=== PATIENT | female | born 1960 | race Caucasian/White ===

== ENCOUNTER 2016-11-11 | Outpatient (CLI) | payer BC | END 2016-11-11 10:00 | disposition home or self-care (01) ==

== ENCOUNTER 2016-11-11 09:35 | Outpatient (CLI) | payer BC | END 2016-11-11 09:36 | disposition home or self-care (01) | DX: Z80.3 Family history of malignant neoplasm of breast (principal) ==

== ENCOUNTER 2018-05-25 07:27 | Outpatient (CLI) | payer BC ==
--- NOTE | 2018-05-25 09:46 | Ultrasound Report ---
Reason: CHOLELITHIASIS Procedure Date: 05/25/2018 Accession Number: [id number] / [id number] Procedure: US - Abdomen Complete CPT Code: FULL RESULT: EXAM: ABDOMEN ULTRASOUND EXAM DATE: 05/25/2018 08:28 AM. CLINICAL HISTORY: CHOLELITHIASIS. COMPARISON: None. TECHNIQUE: Real-time scanning was performed with static images obtained. FINDINGS: Liver: The liver is moderately and diffusely echogenic. Normal contour. No masses. 16.3 cm. Main portal vein flow: Hepatopetal. Gallbladder: There are multiple gallstones. There is no gallbladder wall thickening or pericholecystic fluid. Biliary System: Common bile duct measures 5 mm. No intrahepatic or extrahepatic ductal dilatation. Pancreas: Visualized pancreas is unremarkable. Kidneys: Right: 11.4 cm longitudinally. No contour-deforming mass, stones, or hydronephrosis. Left: 11.4 cm longitudinally. No contour-deforming mass, stones, or hydronephrosis. Spleen: 10.6 cm. Normal in size and echotexture. Likely 1.4 cm accessory spleen. Aorta and Inferior Vena Cava: Unremarkable. IMPRESSION: Cholelithiasis without evidence of cholecystitis [facility]
== END 2018-05-25 07:28 | disposition home or self-care (01) ==
LOC: DI 07:27
PROVIDERS: ATTEND Family Medicine
DX: K80.20 Calculus of gallbladder without cholecystitis without obstruction (principal)
CPT/HCPCS: 76700

== ENCOUNTER 2018-06-10 10:12 | Outpatient (CLI) | payer BC ==
--- NOTE | 2018-06-10 16:22 | MRI Report ---
Reason: PIRIFORMIS SYNDROME, RIGHT Procedure Date: 06/10/2018 Accession Number: [id number] / [id number] Procedure: MRI - Pelvis W/O CPT Code: FULL RESULT: EXAM: MRI PELVIS WITHOUT CONTRAST EXAM DATE: 06/10/2018 11:44 AM. CLINICAL HISTORY: Piriformis syndrome, right. COMPARISON: None. TECHNIQUE: Multiplanar, multisequence T1-weighted and fluid-sensitive sequences of the pelvis without contrast. Other: None. FINDINGS: Bones: No fractures or subluxations. No marrow edema or bone lesions. Lower Lumbar Spine: Mild degenerative change at the L4-L5 and L5-S1 endplates. Sacroiliac Joints: No effusion or sacroiliitis. Right Hip: No acetabular retroversion. Femoral head-neck offset is within normal limits. No effusion. Left Hip: No acetabular retroversion. Femoral head-neck offset is within normal limits. No effusion. Symphysis Pubis: Unremarkable. Musculature: The piriformis appear symmetric and do not appear enlarged. There is no fatty atrophy. Pelvic Cavity: No pelvic mass. The visible bladder and bowel appear unremarkable. Other: The visualized sciatic nerves are unremarkable. No bursitis. The subcutaneous tissues are unremarkable. IMPRESSION: 1. Symmetric piriformis muscles. No pelvic mass. 2. Mild degenerative change in the lower lumbar spine. [facility] MUSCULOSKELETAL RADIOLOGY SECTION
== END 2018-06-10 10:13 | disposition home or self-care (01) ==
LOC: DI 10:12
PROVIDERS: ATTEND Orthopaedic Surgery
DX: G57.01 Lesion of sciatic nerve, right lower limb (principal)
CPT/HCPCS: 72195

== ENCOUNTER 2018-11-16 06:45 | Day surgery (SDC) | payer OTHER ==
[2018-11-16] MEDS ORDERED: LACTATED RINGERS 1,000 ML IV ONE ×3 (07:10→09:10)
[2018-11-16] MEDS ORDERED: fentaNYL 250 MCG/5 ML VIAL IVP ONE (08:16)
[2018-11-16] MEDS ORDERED: MIDAZOLAM 2 MG/2 ML VIAL IVP ONE (08:16)
[2018-11-16] MEDS ORDERED: ONDANSETRON 4 MG/2 ML VIAL ONE (10:21)
[2018-11-16 10:56] VITALS: BP 122/79
== END 2018-11-16 06:46 | disposition home or self-care (01) ==
LOC: SDS 06:45
PROVIDERS: ATTEND Surgery
PROC: 3E0H8GC Introduction of Other Therapeutic Substance into Lower GI, Via Natural or Artificial Opening Endoscopic (ICD-10-PCS; 2018-11-16)
PROC: 0DBN8ZX Excision of Sigmoid Colon, Via Natural or Artificial Opening Endoscopic, Diagnostic (ICD-10-PCS; principal; 2018-11-16 08:15)
DX: Z12.11 Encounter for screening for malignant neoplasm of colon (principal); D12.5 Benign neoplasm of sigmoid colon; K64.8 Other hemorrhoids; K80.20 Calculus of gallbladder without cholecystitis without obstruction; E11.9 Type 2 diabetes mellitus without complications; I10 Essential (primary) hypertension; E66.9 Obesity, unspecified; Z68.38 Body mass index [BMI] 38.0-38.9, adult
CPT/HCPCS: 45381; 45385; J3010; J7120

== ENCOUNTER 2019-01-01 07:46 | Day surgery (SDC) | payer OTHER ==
[2019-01-01] MEDS ORDERED: KETAMINE 500 MG/10 ML VIAL IVP ONE (08:00)
[2019-01-01] MEDS ORDERED: PROPOFOL 200 MG/20 ML VIAL IVP ONE (08:00)
[2019-01-01] MEDS ORDERED: MIDAZOLAM 2 MG/2 ML VIAL IVP ONE (08:00)
[2019-01-01] MEDS ORDERED: LACTATED RINGERS 1,000 ML IV ONE (08:10)
--- NOTE | 2019-01-01 08:21 | ANESTHESIA ---
Pre-Anesthesia VS, & Labs - Diagnosis colon polyps - Procedure colonoscopy Vital Signs: Temp Pulse Resp BP Pulse Ox 36.0 C L 97 20 125/80 97 01/01/19 07:55 01/01/19 07:55 01/01/19 07:55 01/01/19 07:55 01/01/19 07:55 Height 5 ft 1.25 in Weight (kg) 91.3 kg Body Mass Index 38.9 - NPO >8 hours - Is Patient ?: Not Applicable Home Medications and Allergies Home Medications: Ambulatory Orders Black Cohosh 540 mg PO DAILY 12/28/18 Cholecalciferol [Vitamin D3] 10,000 unit PO DAILY 12/28/18 Losartan/Hydrochlorothiazide [Losartan-Hctz 100-25 mg Tab] 25 mg ORAL DAILY 08/04/15 Potassium Chloride [Klor-Con M10] 20 meq ORAL DAILY 08/04/15 metFORMIN [Glucophage] 4,000 mg ORAL DAILY 08/04/15 Glimepiride 4 mg PO DAILY 11/13/18 Black Cohosh 540 mg PO DAILY 12/28/18 Cholecalciferol [Vitamin D3] 10,000 unit PO DAILY 12/28/18 Allergies/Adverse Reactions: Allergies Allergy/AdvReac Type Severity Reaction Status Date / Time morphine AdvReac chest pain Verified 12/31/18 13:52 and nausea Anes History & Medical History - Anesthetic History Anesthesia Complications: reports: Post-Operative Nausea/Vomiting Family history of Anesthesia Complications: Denies Family history of Malignant Hyperthermia: Denies - Medical History Cardiovascular: reports: Hypertension Pulmonary: reports: None Gastrointestinal: reports: Colon polyps Urinary: reports: None Musculoskeletal: reports: Chronic back pain Endocrine/Autoimmune: reports: Type 2 diabetes Skin: reports: None Smoking Status: Never smoker - Surgical History General: Other Gynecologic: Hysterectomy Exam General: Alert, Oriented x3, Cooperative, No acute distress Dental: WNL Mouth Openin Fingerbreadth Neck Mobility: Normal Mallampati classification: II Thyromental Distance: 4-6 cm Respiratory: Lungs clear, Normal breath sounds, No respiratory distress, No accessory muscle use Cardiovascular: Regular rate, Normal S1, Normal S2, No murmurs Mental/Cognitive Status: Alert/Oriented X3, Normal for patient Plan Anesthesia Type: MAC Consent for Procedure(s) Verified and Reviewed: Yes Code Status: Attempt Resuscitation ASA classification: 2-Mild systemic disease Is this case an emergency?: No
[2019-01-01 10:11] VITALS: BP 121/79
== END 2019-01-01 07:47 | disposition home or self-care (01) ==
LOC: SDS 07:46
PROVIDERS: ATTEND Surgery
PROC: 0DBN8ZZ Excision of Sigmoid Colon, Via Natural or Artificial Opening Endoscopic (ICD-10-PCS; principal; 2019-01-01 09:00)
DX: D12.5 Benign neoplasm of sigmoid colon (principal); K64.8 Other hemorrhoids; I10 Essential (primary) hypertension; E11.9 Type 2 diabetes mellitus without complications; Z79.84 Long term (current) use of oral hypoglycemic drugs; E66.9 Obesity, unspecified; Z68.38 Body mass index [BMI] 38.0-38.9, adult
CPT/HCPCS: 45385; J7120

== ENCOUNTER 2020-07-24 12:39 | Outpatient (CLI) | payer OTHER ==
--- NOTE | 2020-07-24 15:37 | XRAY Report ---
PROCEDURE: Shoulder 3 View RT INDICATIONS: RIGHT SHOULDER PAIN TECHNIQUE: views of the shoulder were acquired. COMPARISON: None. FINDINGS: Bones: No fractures or dislocations. No suspicious bony lesions. Visualized ribs appear intact. Soft tissues: There are suspicious soft tissue calcifications at the lateral supraspinatus tendon are a, bursal in appearance. IMPRESSION: Definite calcific bursitis right shoulder. Reviewed by: Derick Deshpande MD on 07/24/2020 3:35 PM PST Approved by: Derick Deshpande MD on 07/24/2020 3:35 PM PST Station ID: [id number]
== END 2020-07-24 12:40 | disposition home or self-care (01) ==
LOC: DI.WCP 12:39
PROVIDERS: ATTEND Nurse Practitioner
DX: M75.51 Bursitis of right shoulder (principal)

== ENCOUNTER 2020-08-31 08:00 | Outpatient (CLI) | payer OTHER ==
[2020-08-31 17:49] LABS: BASOPHILS # (AUTO) 0.1 10^3/uL (0.0-0.1); BASOPHILS % (AUTO) 0.8 %; EOSINOPHILS # (AUTO) 0.3 10^3/uL (0.0-0.7); EOSINOPHILS % (AUTO) 3.8 %; HGB - HEMOGLOBIN 15.4 g/dL (12.0-16.0); LYMPHOCYTES # (AUTO) 1.8 10^3/uL (1.5-3.5); MEAN CORPUSCULAR HEMOGLOBIN 30.3 pg (27.0-31.0); MEAN CORPUSCULAR HGB CONC 33.1 g/dL (32.0-36.0); MEAN CORPUSCULAR VOLUME 91.4 fL (81.0-99.0); MEAN PLATELET VOLUME 10.5 fL (7.9-10.8); MONOCYTES # (AUTO) 0.6 10^3/uL (0.0-1.0); MONOCYTES % (AUTO) 6.6 %; NEUTROPHILS # (AUTO) 5.9 10^3/uL (1.5-6.6); NEUTROPHILS % (AUTO) 67.6 %; PLT - PLATELET COUNT 388 10^3/uL (130-450); RED BLOOD COUNT 5.09 10^6/uL (4.20-5.40); WHITE BLOOD COUNT 8.8 x10^3/uL (4.8-10.8)
[2020-08-31 18:12] LABS: CALCIUM 10.6 mg/dL (8.5-10.3); CREATININE 0.6 mg/dL (0.4-1.0)
== END 2020-08-31 08:01 | disposition home or self-care (01) ==
LOC: LAB.WCP 08:00
PROVIDERS: ATTEND Internal Medicine
DX: R59.0 Localized enlarged lymph nodes (principal)
CPT/HCPCS: 36415; 80048; 80053; 80061; 81599; 82043; 82570; 83036; 83615; 83721; 84443; 85025; 86140; 88184; 88185; 88189

== ENCOUNTER 2020-09-05 09:56 | Outpatient (CLI) | payer OTHER ==
[2020-09-05 14:17] LABS: HEMOGLOBIN A1c% 7.2 % (4.27-6.07)
[2020-09-05 15:13] LABS: ALBUMIN 4.1 g/dL (3.2-5.5); BILIRUBIN,DIRECT 0.1 mg/dL (0.1-0.5); BILIRUBIN,TOTAL 0.7 mg/dL (0.2-1.0); TOTAL PROTEIN 7.8 g/dL (6.7-8.2)
== END 2020-09-05 09:57 | disposition home or self-care (01) ==
LOC: LAB.N 09:56
PROVIDERS: ATTEND Internal Medicine
DX: E11.9 Type 2 diabetes mellitus without complications (principal); E83.52 Hypercalcemia
CPT/HCPCS: 36415; 80076; 83036; 83519; 83970

== ENCOUNTER 2020-09-09 08:39 | Outpatient (CLI) | payer OTHER ==
[2020-09-09] MEDS ORDERED: IOVERSOL 320 100 ML VIAL IVP ONE ×2 (09:03→14:39)
[2020-09-09] MEDS ORDERED: IOVERSOL 320 50 ML VIAL ONE (09:03)
[2020-09-09] MEDS ORDERED: IOVERSOL 320 50 ML VIAL PO ONE (14:39)
--- NOTE | 2020-09-09 18:26 | CT Report ---
PROCEDURE: CHEST W INDICATIONS: LYMPHADENOPATHY, AXILLA CONTRAST: IV CONTRAST: Optiray 320 ml: 100 PO CONTRAST: Optiray 320 ml50 TECHNIQUE: After the administration of intravenous contrast, 5 mm thick sections acquired from the pulmonary api gabino to the posterior costophrenic angles. 7 mm thick coronal MIP reformats were acquired. For radia tion dose reduction, the following was used: automated exposure control, adjustment of mA and/or kV according to patient size. COMPARISON: 12/08/2013 FINDINGS: Image quality: Excellent. Lungs and pleura: There is diffuse interstitial reticulation throughout the lungs involving upper an d lower lobes. There is a small nodule associated with the left major fissure at the midlung level. N o pulmonary consolidations. Minor groundglass opacity is present in the lung bases. No pleural effusi on. The airways are patent and of normal caliber Mediastinum: Heart size is slightly enlarged with mild coronary calcification. No pericardial effus ion. No mediastinal or hilar adenopathy by size criteria. Thoracic aorta and central pulmonary karlene terrell are normal in size. Esophagus is normal in caliber. No hiatal hernia. Bones and chest wall: There is an enlarged level 1 right axillary lymph node with loss of fatty hilu m measuring 2.2 cm in short axis. Scattered nonenlarged lymph nodes are present in the left. No level 2 or 3 axillary adenopathy. No visible supraclavicular adenopathy. No suspicious bony lesions. No v ertebral body compression fractures. No axillary or supraclavicular adenopathy by size criteria. Th yroid gland is normal. Abdomen: Visualized upper abdomen demonstrates steatosis and cholelithiasis. IMPRESSION: 1. Enlarged right axillary lymph node with suspicious morphology. Percutaneous biopsy or surgical exc ision is recommended. 2. Diffuse interstitial thickening throughout both lungs with minor bibasilar groundglass opacities. This is nonspecific but can be seen in the setting of edema, infection, chronic interstitial lung dis ease, less likely lymphangitic metastatic disease. Correlate clinically. 3. No other adenopathy in the chest. Reviewed by: Bekah Wu MD on 09/09/2020 6:24 PM PST Approved by: Bekah Wu MD on 09/09/2020 6:24 PM PST Station ID: [id number]
--- NOTE | 2020-09-09 18:30 | CT Report ---
PROCEDURE: Abdomen/Pelvis W INDICATIONS: LYMPHADENOPATHY, AXILLA CONTRAST: IV CONTRAST: Optiray 320 ml: 100 PO CONTRAST: Optiray 320 ml50 TECHNIQUE: After the administration of IV and oral contrast, 5 mm thick sections acquired from the diaphragms to the symphysis. 5 mm thick coronal and sagittal reformats were acquired. For radiation dose reducti on, the following was used: automated exposure control, adjustment of mA and/or kV according to liset ent size. COMPARISON: None. FINDINGS: Image quality: Excellent. ABDOMEN: Lung bases: Lung bases are clear. Heart size is normal. Solid organs: Liver is mildly diffusely hypodense. No hepatic lesions visible. The gallbladder is pa cked with gallstones. There is no pericholecystic fluid. No intra or extrahepatic biliary dilatation. Pancreas enhances normally. No adrenal nodules. Kidneys demonstrate normal size and enhancement, w ithout hydronephrosis. Peritoneum and bowel: Bowel loops demonstrate normal wall thickness and caliber. Normal appendix. Mi ld descending colon and sigmoid diverticula. No free fluid or air. Nodes and vessels: Small portacaval lymph nodes are nonenlarged. No retroperitoneal or mesenteric ad enopathy by size criteria. Aorta and inferior vena cava are normal in size. Miscellaneous: No ventral hernias. PELVIS: Genitourinary: Bladder wall thickness is normal. The uterus is surgically absent. Ovaries are normal . Miscellaneous: No inguinal hernias or adenopathy. There is mild pelvic floor laxity. Bones: No suspicious bony lesions. No vertebral body compression fractures. Degenerative disc heigh t loss at L5-S1. IMPRESSION: 1. Hepatic steatosis. 2. Cholelithiasis. 3. No evidence of adenopathy in the abdomen or pelvis. Reviewed by: Bekah Wu MD on 09/09/2020 6:28 PM PST Approved by: Bekah Wu MD on 09/09/2020 6:28 PM PST Station ID: [id number]
== END 2020-09-09 08:40 | disposition home or self-care (01) ==
LOC: DI 08:39
PROVIDERS: ATTEND Internal Medicine
DX: R59.0 Localized enlarged lymph nodes (principal); K76.0 Fatty (change of) liver, not elsewhere classified; K80.20 Calculus of gallbladder without cholecystitis without obstruction
CPT/HCPCS: 71260; 74177; Q9967

== ENCOUNTER 2020-11-09 19:31 | Outpatient (CLI) | payer OTHER | END 2020-11-09 19:32 | disposition home or self-care (01) | LOC: COV 19:31 | PROVIDERS: ATTEND Surgery | DX: Z01.812 Encounter for preprocedural laboratory examination (principal); C50.911 Malignant neoplasm of unspecified site of right female breast; E11.9 Type 2 diabetes mellitus without complications; Z20.822 Contact with and (suspected) exposure to COVID-19 ==

== ENCOUNTER 2020-11-13 06:25 | Day surgery (SDC) | payer OTHER ==
[2020-11-13] MEDS ORDERED: ceFAZolin 2 GM/50 ML 2 GM/50 ML BAG IV ONE (06:31)
[2020-11-13] MEDS ORDERED: LACTATED RINGERS 1,000 ML IV ONE ×2 (06:47→08:54)
[2020-11-13] MEDS ORDERED: BUPIVACAINE 0.5% PF 30 ML VIAL ONE (06:59)
[2020-11-13] MEDS ORDERED: LIDOCAINE 2%-EPI 1:100000 20 ML MDV ONE (06:59)
--- NOTE | 2020-11-13 07:23 | ANESTHESIA ---
Pre-Anesthesia VS, & Labs - Diagnosis right breast cancer - Procedure left subclavian power port Vital Signs: Temp Pulse Resp BP Pulse Ox 37.0 C 101 H 18 126/77 96 11/13/20 06:35 11/13/20 06:35 11/13/20 06:35 11/13/20 06:35 11/13/20 06:35 Height: 5 ft 1 in Weight (kg): 89 kg Body Mass Index: 37.0 BMI Classification: Obese - NPO >8 hours - Is Patient ?: No - Lab Results Current Lab Results: Laboratory Tests 11/13/20 07:10: POC Whole Bld Glucose 184 H Home Medications and Allergies Home Medications: Ambulatory Orders Acetaminophen [Tylenol] 650 mg PO Q6H PRN 11/07/20 Ascorbic Acid [Vitamin C] 500 mg PO DAILY 11/07/20 Losartan/Hydrochlorothiazide [Losartan-Hctz 100-25 mg Tab] 1 tab ORAL DAILY 08/04/15 Potassium Chloride [Klor-Con M10] 20 meq ORAL DAILY 08/04/15 metFORMIN [Glucophage] 2,000 mg ORAL DAILY 08/04/15 Glimepiride 4 mg PO DAILY 11/13/18 Black Cohosh 1 cap PO DAILY 12/28/18 Cholecalciferol [Vitamin D3] 2,000 unit PO DAILY 12/28/18 Acetaminophen [Tylenol] 650 mg PO Q6H PRN 11/07/20 Ascorbic Acid [Vitamin C] 500 mg PO DAILY 11/07/20 Allergies/Adverse Reactions: Allergies Allergy/AdvReac Type Severity Reaction Status Date / Time morphine AdvReac chest pain Verified 11/13/20 07:05 and nausea Anes History & Medical History - Anesthetic History Anesthesia Complications: reports: No previous complications - Medical History Cardiovascular: reports: Hypertension Pulmonary: reports: None, Pneumonia Gastrointestinal: reports: Colon polyps Urinary: reports: None Musculoskeletal: reports: Chronic back pain Endocrine/Autoimmune: reports: Type 2 diabetes Skin: reports: None Smoking Status: Never smoker - Surgical History General: reports: Colonoscopy, Other Gynecologic: reports: Hysterectomy Exam General: Alert Dental: WNL Mouth Opening: Greater than 4 Fingerbreadths Mallampati classification: III Thyromental Distance: greater than 6 cm Respiratory: Lungs clear Cardiovascular: Regular rate, Normal S1, Normal S2 Mental/Cognitive Status: Alert/Oriented X3 Plan Anesthesia Type: General Consent for Procedure(s) Verified and Reviewed: Yes Code Status: Attempt Resuscitation ASA classification: 2-Mild systemic disease Is this case an emergency?: No
[2020-11-13] MEDS ORDERED: NALOXONE 0.4 MG/ML VIAL IVP PRN (07:54)
[2020-11-13] MEDS ORDERED: METOCLOPRAMIDE 10 MG/2 ML VIAL IVP PRN (07:54)
[2020-11-13] MEDS ORDERED: fentaNYL 100 MCG/2 ML VIAL IVP PRN (07:54)
[2020-11-13] MEDS ORDERED: ONDANSETRON 4 MG/2 ML VIAL IVP PRN (07:54)
[2020-11-13] MEDS ORDERED: ATROPINE ABBOJECT 1 MG/10 ML SYRINGE IVP PRN (07:54)
[2020-11-13] MEDS ORDERED: ePHEDrine 50 MG/ML VIAL IVP PRN (07:54)
[2020-11-13] MEDS ORDERED: MIDAZOLAM 2 MG/2 ML VIAL ONE (07:57)
[2020-11-13] MEDS ORDERED: fentaNYL 100 MCG/2 ML VIAL ONE (07:57)
[2020-11-13] MEDS ORDERED: LACTATED RINGERS 1,000 ML IV SCH (08:00)
[2020-11-13] MEDS ORDERED: BUPIVACAINE 0.5% PF 30 ML VIAL INFIL ONE ×2 (08:24→08:42)
[2020-11-13] MEDS ORDERED: LIDOCAINE 1%-EPI 1:100000 30 ML MDV SUBQ ONE ×2 (08:25→08:42)
[2020-11-13] MEDS ORDERED: ePHEDrine 50 MG/ML VIAL IVP ONE (08:27)
--- NOTE | 2020-11-13 08:48 | OPERATIVE REPORT ---
Operative Report - General Procedure Date: 11/13/20 Planned Procedure: Left subclavian port Pre-Op Diagnosis: Locally advanced breast cancer Procedure Performed: Left subclavian port Post Op Diagnosis: Locally advanced breast cancer - Procedure Note Primary Surgeon: Juan Diego Anesthesia Provider: DOMINIQUE De La Vega Anesthesia Technique: General LMA, Local Estimated Blood Loss (mL): 5 Indications: Facilitation of chemotherapy Findings: Port in good position in the SVC Complications: None apparent - Other Other Information/Narrative: After obtaining informed consent, the patient is brought to the operating room and placed in supine position on the operating table. Following successful induction of sedation with monitored anesthesia care and appropriate padding of all bony prominences, the left chest and neck were prepped and draped in the standard surgical fashion. A timeout was held per scope protocol. All elements of the surgical safety checklist were followed before, during, and after the procedure. Following infiltration with local anesthetic to create a field block, the left subclavian vein was accessed in the deltopectoral groove. The J-wire was gently placed into the vein. Fluoroscopy was used to confirm the position of the wire and in the subclavian vein. We anesthetized the existing healed scar in the area around it for placement of the port itself. An incision was created here and carried down through the skin and subcutaneous tissue. A pocket was created with blunt dissection. The port tubing was attached to the tunneling device and passed from the access site of the vein into the pocket. It was trimmed to an appropriate length and the port attached. The port was sewn into place in the pocket. The dilator and introducer were then passed over the J-wire that was in the subclavian vein. The J-wire and dilator were removed leaving only the introducer. The tubing was then passed through the introducer and the introducer cracked and removed per vat house laborer's directions. The port was then checked for function and flushed and moreno easily. Additional local anesthetic was applied to the chest wall. The port pocket was closed with interrupted Vicryl sutures and Monocryl stitches were placed in both skin incision sites. All sponge, needle, and instrument counts were correct at the conclusion of the case. Chest x-ray in the postanesthesia care unit revealed the port in good position in the superior vena cava without evidence of pneumothorax.
[2020-11-13 09:32] VITALS: BP 129/84
--- NOTE | 2020-11-13 09:52 | XRAY Report ---
PROCEDURE: OR C-Arm Procedure INDICATIONS: port placement COMPARISON: Chest x-ray 11/13/2020. FINDINGS: Fluoroscopy was provided for intraoperative replacement. A single saved fluoroscopic image demonstrat es a guidewire projecting over the expected region of the left innominate vein extending into the exp ected region of the superior vena cava. IMPRESSION: 1. Fluoroscopy provided for intraoperative port placement. Reviewed by: Jacoby Tristan MD on 11/13/2020 8:51 AM [facility] Approved by: Jacoby Tristan MD on 11/13/2020 8:51 AM [facility] Station ID: [id number]
--- NOTE | 2020-11-13 09:58 | XRAY Report ---
PROCEDURE: Chest for Line Placement INDICATIONS: Left Subclavian Port TECHNIQUE: One view of the chest was acquired. COMPARISON: Chest CT 09/09/2020, chest x-ray 12/08/2013. FINDINGS: Surgical changes and devices: There is a left subclavian Port-A-Cath with the tip projecting in the r egion of the superior vena cava approximately 4 cm from the cavoatrial junction. Lungs and pleura: No pleural effusions or pneumothorax. There is pulmonary vascular prominence sugg estive of mild edema. Mediastinum: Mediastinal contours appear normal. Heart size is normal given technique. Bones and chest wall: No suspicious bony lesions. Overlying soft tissues appear unremarkable. IMPRESSION: 1. No evidence of pneumothorax. 2. Catheter tip in the expected region of the superior vena cava. Reviewed by: Jacoby Tristan MD on 11/13/2020 8:57 AM [facility] Approved by: Jacoby Tristan MD on 11/13/2020 8:57 AM [facility] Station ID: [id number]
--- NOTE | 2020-11-13 14:17 | ANESTHESIA POST OP EVALUATION ---
Anesthesia Post Eval - Post Anesthesia Eval Vitals: Last Vital Signs Temp 36.4 C L 11/13/20 09:30 Pulse 104 H 11/13/20 09:30 Resp 16 11/13/20 09:30 BP 129/84 H 11/13/20 09:30 Pulse Ox 98 11/13/20 09:30 CV Function Including HR & BP: positive: Stable Pain Control: positive: Satisfactory Nausea & Vomiting: positive: Negative Mental Status: positive: Baseline Respiratory Status: Airway Patent Hydration Status: Satisfactory Anesthesia Complications: positive: None
== END 2020-11-13 06:26 | disposition home or self-care (01) ==
LOC: SDS 06:25
PROVIDERS: ATTEND Surgery
DX: C50.911 Malignant neoplasm of unspecified site of right female breast (principal); I10 Essential (primary) hypertension; E11.9 Type 2 diabetes mellitus without complications; Z79.84 Long term (current) use of oral hypoglycemic drugs; E66.9 Obesity, unspecified; Z68.37 Body mass index [BMI] 37.0-37.9, adult
CPT/HCPCS: 36561; 71045; C1788; J0690; J7120

== ENCOUNTER 2020-11-22 08:41 | Outpatient (CLI) | payer OTHER ==
--- NOTE | 2020-11-22 18:15 | Nuclear Medicine Report ---
PROCEDURE: Bone Whole Body INDICATIONS: BREAST CA RADIOPHARMACEUTICAL: 20 4. mCi Tc-99m MDP IV. TECHNIQUE: Delayed whole-body scintigrams were obtained approximately 3-4 hours after intravenous injection of r adiotracer. Anterior and posterior views were acquired from vertex to feet. Additional left and rig ht oblique views of the skull were obtained. COMPARISON: CT chest with contrast and CT abdomen and pelvis with contrast, 09/09/2020.. FINDINGS: There is symmetrically increased activity in thoracic spine at the level of T8 laterally o n posterior projection, correlating with CT finding of prominent lateral osteophytes at T8-T9. Increa sed activity in the right foot is most likely related to arthritic change. The level increased activi ty in the right mandible is most likely related to dental disease. There is otherwise normal distribu tion of activity. IMPRESSION: 1. There is increased uptake in the thoracic spine at the level of T8. The comparison CT demonstrates prominent lateral osteophytes bilaterally at T8-T9. 2. Increased uptake in the right foot is most likely degenerative/arthritic in nature. 3. No definitive scintigraphic findings to suggest osseous metastasis. Reviewed by: Abhijit Gonzales MD on 11/22/2020 6:14 PM PST Approved by: Abhijit Gonzales MD on 11/22/2020 6:14 PM PST Station ID: [id number]
== END 2020-11-22 08:42 | disposition home or self-care (01) ==
LOC: DI 08:41
PROVIDERS: ATTEND Internal Medicine
DX: C50.919 Malignant neoplasm of unspecified site of unspecified female breast (principal); M25.78 Osteophyte, vertebrae
CPT/HCPCS: 78306

== ENCOUNTER 2020-11-28 10:18 | Outpatient (CLI) | payer OTHER | END 2020-11-28 10:19 | disposition home or self-care (01) | LOC: DI 10:18 | PROVIDERS: ATTEND Internal Medicine | DX: C50.919 Malignant neoplasm of unspecified site of unspecified female breast (principal); I35.8 Other nonrheumatic aortic valve disorders | CPT/HCPCS: 93306 ==

== ENCOUNTER 2021-01-10 13:05 | Outpatient (CLI) | payer OTHER ==
[2021-01-10 13:28] LABS: ESTIMATED AVERAGE GLUCOSE 174 mg/dL (70-100); HEMOGLOBIN A1c% 7.7 % (4.27-6.07)
== END 2021-01-10 13:06 | disposition home or self-care (01) ==
LOC: LAB 13:05
PROVIDERS: ATTEND Internal Medicine
DX: E11.9 Type 2 diabetes mellitus without complications (principal)
CPT/HCPCS: 36415; 83036

== ENCOUNTER 2021-04-18 14:17 | Outpatient (CLI) | payer OTHER ==
[2021-04-18 20:07] LABS: ESTIMATED AVERAGE GLUCOSE 105 mg/dL (70-100); HEMOGLOBIN A1c% 5.3 % (4.27-6.07)
== END 2021-04-18 14:18 | disposition home or self-care (01) ==
LOC: LAB 14:17
PROVIDERS: ATTEND Internal Medicine
DX: E11.9 Type 2 diabetes mellitus without complications (principal)
CPT/HCPCS: 36415; 83036

== ENCOUNTER 2021-05-07 08:35 | Day surgery (SDC) | payer OTHER ==
[~2021-05-07 08:35] MED LIST: BUFFERED LIDOCAINE 10 ML SYRINGE ONE; LIDOCAINE MPF 1%-EPI 1:200000 30 ML VIAL ONE
[2021-05-07] MEDS ORDERED: LACTATED RINGERS 1,000 ML IV ONE ×2 (08:56→15:02)
[2021-05-07] MEDS ORDERED: fentaNYL 100 MCG/2 ML VIAL IVP PRN (10:27)
[2021-05-07] MEDS ORDERED: ATROPINE ABBOJECT 1 MG/10 ML SYRINGE IVP PRN (10:27)
[2021-05-07] MEDS ORDERED: ONDANSETRON 4 MG/2 ML VIAL IVP PRN ×2 (10:27→15:15)
[2021-05-07] MEDS ORDERED: ePHEDrine 50 MG/ML VIAL IVP PRN (10:27)
[2021-05-07] MEDS ORDERED: METOCLOPRAMIDE 10 MG/2 ML VIAL IVP PRN (10:27)
[2021-05-07] MEDS ORDERED: NALOXONE 0.4 MG/ML VIAL IVP PRN (10:27)
--- NOTE | 2021-05-07 10:27 | ANESTHESIA ---
Pre-Anesthesia VS, & Labs - Diagnosis R breast CA - Procedure R breast lumpectomy, sentinel node biopsy Vital Signs: Temp Pulse Resp BP Pulse Ox 36.3 C L 100 16 149/88 H 99 05/07/21 08:57 05/07/21 08:57 05/07/21 08:57 05/07/21 08:57 05/07/21 08:57 Height: 5 ft 1 in Weight (kg): 83.7 kg Body Mass Index: 34.8 BMI Classification: Obese - NPO >8 hours - Is Patient ?: No - Lab Results Current Lab Results: Laboratory Tests 05/07/21 09:21: POC Whole Bld Glucose 148 H Lab results reviewed: Yes Home Medications and Allergies Potassium Chloride [Klor-Con M10] 20 meq ORAL DAILY 08/04/15 metFORMIN [Glucophage] 2,000 mg ORAL DAILY 08/04/15 Glimepiride 4 mg PO DAILY 11/13/18 Cholecalciferol [Vitamin D3] 4,000 unit PO DAILY 12/28/18 Ascorbic Acid [Vitamin C] 500 mg PO DAILY 11/07/20 Allergies/Adverse Reactions: Allergies Allergy/AdvReac Type Severity Reaction Status Date / Time morphine AdvReac chest pain Verified 03/21/21 14:21 and nausea Anes History & Medical History - Anesthetic History Anesthesia Complications: reports: No previous complications Family history of Anesthesia Complications: Denies Family history of Malignant Hyperthermia: Denies - Medical History Cardiovascular: reports: Hypertension Pulmonary: reports: Pneumonia Gastrointestinal: reports: Colon polyps Urinary: reports: None Musculoskeletal: reports: Chronic back pain Endocrine/Autoimmune: reports: Type 2 diabetes Skin: reports: None Smoking Status: Never smoker History of Cancer?: Yes (R breast) Other Past Medical History: Port-a-cath at L chest (not accessed) - Surgical History General: reports: Colonoscopy, Other Gynecologic: reports: Hysterectomy Exam General: Alert, Oriented x3, Cooperative Dental: WNL Mouth Openin Fingerbreadth Neck Mobility: Normal Mallampati classification: II Thyromental Distance: 4-6 cm Respiratory: Lungs clear, Normal breath sounds, No respiratory distress, No accessory muscle use Cardiovascular: Regular rate (tachy at 100ish) Mental/Cognitive Status: Alert/Oriented X3, Normal for patient Cognitive Status: Within normal limits Plan Anesthesia Type: General Consent for Procedure(s) Verified and Reviewed: Yes Code Status: Attempt Resuscitation ASA classification: 3-Severe systemic disease Is this case an emergency?: No
[2021-05-07] MEDS ORDERED: LACTATED RINGERS 1,000 ML IV SCH (11:00)
[2021-05-07] MEDS ORDERED: BUPIVACAINE 0.5% PF 10 ML VIAL ONE (11:25)
[2021-05-07] MEDS ORDERED: LIDOCAINE 2%-EPI 1:100000 20 ML MDV ONE (11:26)
[2021-05-07] MEDS ORDERED: fentaNYL 100 MCG/2 ML VIAL ONE ×2 (12:22→14:32)
[2021-05-07] MEDS ORDERED: DEXAMETHASONE 4 MG/ML VIAL ONE (12:23)
[2021-05-07] MEDS ORDERED: KETOROLAC 30 MG/ML VIAL ONE (12:23)
[2021-05-07] MEDS ORDERED: LIDOCAINE-MPF 2% 5 ML VIAL ONE (12:23)
[2021-05-07] MEDS ORDERED: PROPOFOL 200 MG/20 ML VIAL IVP ONE (12:23)
[2021-05-07] MEDS ORDERED: BUFFERED LIDOCAINE 10 ML SYRINGE IU ONE (13:06)
[2021-05-07] MEDS ORDERED: MIDAZOLAM 2 MG/2 ML VIAL ONE (13:31)
[2021-05-07] MEDS ORDERED: LIDOCAINE 2%-EPI 1:100000 20 ML MDV SUBQ ONE (14:03)
[2021-05-07] MEDS ORDERED: BUPIVACAINE 0.5% PF 10 ML VIAL IM ONE (14:03)
--- NOTE | 2021-05-07 14:32 | Nuclear Medicine Report ---
PROCEDURE: Lymph Node Scintigraphy INDICATIONS: RIGHT BREAST CA RADIOPHARMACEUTICAL: 0.5-1.0 mCi Millipore filtered Tc-99m sulfur colloid. TECHNIQUE: The area around the nipple was prepped and draped in a sterile fashion. Tc-99m sulfur colloid was in jected intra-dermally in the outer edge of the areola in the right breast. Images were obtained subs equently. A body contour outline was obtained. FINDINGS: There are 2 lymph nodes in the ipsilateral axilla, which is marked on the skin and the images for ref erring physician. IMPRESSION: Two lymph node are seen in the right axilla. Reviewed by: Abhijit Gonzales MD on 05/07/2021 2:31 PM PDT Approved by: Abhijit Gonzales MD on 05/07/2021 2:31 PM PDT Station ID: [id number]
[2021-05-07] MEDS ORDERED: ePHEDrine 50 MG/ML VIAL IVP ONE (14:49)
--- NOTE | 2021-05-07 14:55 | OPERATIVE REPORT ---
Operative Report - General Procedure Date: 05/07/21 Planned Procedure: Right breast lumpectomy with sentinel node biopsy and axillary dissection following needle localization and mapping Pre-Op Diagnosis: Biopsy proven breast cancer involving right axilary nodes; right breast mas Procedure Performed: Right breast lumpectomy with sentinel node biopsy and axillary dissection following needle localization and mapping Post Op Diagnosis: Same - Procedure Note Primary Surgeon: Juan Diego Anesthesia Provider: DOMINIQUE Pena Anesthesia Technique: General LMA, Local Pathology: 1. Vanzant node #! - 10 sec count 46158 2. Vanzant node #2 - 10 sec count 4919 3. Right axillary dissection 4. Right breast mass Estimated Blood Loss (mL): 10 Drain/Tube Type: Neal drain (19 F in the right axillary pocket) Indications: Right axillary lymph nodes positive for metastatic breast cancer status post neoadjuvant chemotherapy Findings: 2 sentinel nodes - clearly the largest and most prominent axillary nodes. Complications: None apparent - Other Other Information/Narrative: After obtaining informed consent, the patient is brought to the operating room and placed in the supine position on the operating table. Following successful induction of general anesthesia, appropriate padding of all bony prominences, and placement of appropriate monitors, the right chest and axilla were prepped and draped in the standard surgical fashion. A timeout was held per scope protocol. All elements of the surgical safety checklist were followed before, during, and after the procedure. We began by infiltrating mixture of local anesthetics in a natural skin fold in the right axilla. The neoprobe was used to identify areas of greatest uptake. An incision was created in this area and carried down through the skin and subcutaneous tissue to enter the axillary fat pad below. The 2 sentinel nodes were identified in the right axilla. They were clearly and easily the largest and the most prominent nodes in the entire packet. As the 2 had been easily identified, I elected to do a full axillary dissection and then to separate the sentinel nodes once the specimen was liberated. The axillary tissue was then gently retracted laterally revealing the pectoralis major and minor medially. The axillary tissue was then carefully dissected from underlying structures with attention to all lymphatics and vasculature with clips prior to division. We continued our dissection superiorly to the level of the axillary vein but the vein was not skeletonized. We continued dissection along the vein leading a visible covering of areolar and fatty tissue over the vein. We continued laterally to the level of the latissimus and again continued to address all lymphatics and vasculature with clips. Limits of dissection are the pectoralis minor medially and to the rib cage, superiorly the axillary vein, laterally the axillary skin and latissimus muscle posteriorly. And inferiorly the axillary tail. Portions of the axillary tail were included in the specimen.The entire axillary packet was liberated in a single piece.The sentinel nodes were easily identified with the neoprobe. The first was liberated and had a 10-second count of 26,931. This was interestingly the more superior of the 2 nodes. The second node was liberated and had a 10-second count of 4919. The uptake in the remainder of the axilla was approximately 15 in the axillary fat pad was approximately 10. Background in the room was 0. The axillary tissue was passed from the table. In the sentinel nodes were sent separately. The wound was then checked for hemostasis and irrigated with warm water. It was aspirated free of all fluid and particulate matter. A 19 Danish Neal drain was placed inferomedially and brought through the skin. The wound was closed in 2 layers with Vicryl Monocryl suture and the bulb was applied to the drain. I now turned my attention to the right breast mass.This had been previously localized with ultrasound guidance. Periareolar incision was then created and carried through the skin and subcutaneous tissue the mass and wire were then sharply dissected free from the underlying tissue and passed from the table as a specimen. The specimen was not submitted for radiographic study as the lesion was never visible mammographically. The wound was irrigated with warm water and closed in 2 layers with Vicryl Monocryl suture. All sponge, needle, and instrument counts were correct at the conclusion of the case. The patient was allowed to wake from anesthesia without difficulty and taken to the postanesthesia care unit in good condition.
[2021-05-07] MEDS ORDERED: ACETAMINOPHEN 325 MG TABLET PO PRN (15:15)
[2021-05-07] MEDS ORDERED: IBUPROFEN 600 MG TABLET PO PRN (15:15)
[2021-05-07] MEDS ORDERED: oxyCODONE 5 MG TABLET PO PRN (15:15)
[2021-05-07 15:41] VITALS: BP 131/72
[2021-05-07] MEDS ORDERED: oxyCODONE 5 MG TABLET ONE (16:02)
--- NOTE | 2021-05-08 08:05 | Mammography Report ---
ULTRASOUND GUIDED WIRE LOCALIZATION RIGHT BREAST WITH POST MAMMOGRAPHIC AND ULTRASOUND IMAGIN2020 CLINICAL: Right breast mass. Correlation is made to exams dated: 04/10/2021 breast MRI, 10/31/2020 breast MRI, 10/16/2020 ultrasound biopsy, 10/16/2020 mammogram, 10/06/2020 ultrasound, and 10/06/2020 mammogram - [facility]. A wire localization using ultrasound guidance was performed for the circumscribed oval cystic mass lo cated in the right breast at 9 o'clock in the retroareolar region. This was described on the previou s MRI report. The skin was prepped in the usual manner. Local anesthetic was administered to the ac cess site. The localization was approached from the lateral aspect. A J-hook wire was inserted into the targeted area under ultrasound guidance. A skin closure strip and a sterile dressing were appli ed to the access site. Post placement mammographic and ultrasound imaging demonstrates the tip daniel cates the boundaries of the targeted area. IMPRESSION: WIRE LOCALIZATION Wire localization for the cystic mass in the right breast at 9 o'clock in the retroareolar region was successful. A specimen radiograph is recommended. This exam was interpreted at Station ID: [id number]. Derick Deshpande M.D. /:05/07/2021 12:19:02 copy to: PRINCESS WELLS, [facility], ph: [phone], fax: [phone] BI-RADS CATEGORY: () - Unspecified - other recall n/a LATERALITY: (B)
--- NOTE | 2021-05-08 08:06 | Ultrasound Report ---
NEEDLE LOCALIZATION: 05/07/2021 CLINICAL: Right breast mass. Right breast wire placement. Correlation is made to exams dated: 04/10/2021 breast MRI, 10/31/2020 breast MRI, 10/16/2020 ultrasound biopsy, 10/16/2020 mammogram, 10/06/2020 ultrasound, and 10/06/2020 mammogram - [facility]. Wire was placed at the posterior margin of the enhancing structure posterior to the lateral right are marquis. IMPRESSION: NEEDLE LOCALIZATION The structure of concern appears to represent a cyst by US appearance, but by MR this structure enha nced. Findings discussed with Dr. Adamson, and she requested localization of this hypoechoic structure for surgery planned for today, to include excision of biopsy proven malignant axillary nodes. This exam was interpreted at Station ID: [id number]. Derick Deshpande M.D. sdh/:05/07/2021 12:15:16 copy to: PRINCESS WELLS, [facility], ph: [phone], fax: [phone] BI-RADS CATEGORY: () - Unspecified - other recall n/a LATERALITY: (B)
== END 2021-05-07 08:36 | disposition home or self-care (01) ==
LOC: DI 08:35
PROVIDERS: ATTEND Surgery
PROC: 07T50ZZ Resection of Right Axillary Lymphatic, Open Approach (ICD-10-PCS; 2021-05-07)
PROC: 0HBT0ZZ Excision of Right Breast, Open Approach (ICD-10-PCS; principal; 2021-05-07 11:45)
DX: C50.811 Malignant neoplasm of overlapping sites of right female breast (principal); C77.3 Secondary and unspecified malignant neoplasm of axilla and upper limb lymph nodes; Z17.0 Estrogen receptor positive status [ER+]; E66.9 Obesity, unspecified; Z68.34 Body mass index [BMI] 34.0-34.9, adult
CPT/HCPCS: 19285; 78195

== ENCOUNTER 2021-09-03 09:35 | Outpatient (CLI) | payer OTHER ==
--- NOTE | 2021-09-03 16:40 | DEXA Report ---
PROCEDURE: Dexa Spine and/or Hip INDICATIONS: POST MENOPAUSAL TECHNIQUE: Dual energy x-ray absorptiometry (DXA) was performed on a Score The Board System. Regions measur ed are the AP Spine, femoral neck, and if needed forearm. COMPARISON: None. FINDINGS: Lumbar Spine: Bone Mineral Density 1.0 g/cm/cm,T score -1.6, osteopenia Left Hip: Bone Mineral Density 1.0 g/cm/cm,T score -0.4, normal bone density Impression: 1. Lumbar spine osteopenia. 2. Normal left hip bone density. Patients with diagnosis of osteoporosis or osteopenia should have regular bone mineral density assess ment. For those eligible for Medicare, routine testing is allowed once every 2 years. Testing frequ ency can be increased for patients who have rapidly progressing disease or for those who are receivin g medical therapy to restore bone mass. Reviewed by: Elliott Nicole MD on 09/03/2021 4:39 PM PST Approved by: Elliott Nicole MD on 09/03/2021 4:39 PM PST Station ID: [id number]
== END 2021-09-03 09:36 | disposition home or self-care (01) ==
LOC: DI 09:35
PROVIDERS: ATTEND Internal Medicine
DX: M85.88 Other specified disorders of bone density and structure, other site (principal); Z78.0 Asymptomatic menopausal state

== ENCOUNTER 2022-02-22 07:24 | Outpatient (CLI) | payer OTHER ==
[2022-02-22 12:37] LABS: CALCIUM 9.8 mg/dL (8.5-10.3); CREATININE 0.7 mg/dL (0.4-1.0); POTASSIUM 3.9 mmol/L (3.5-5.0)
[2022-02-22 13:06] LABS: ESTIMATED AVERAGE GLUCOSE 131 mg/dL (70-100); HEMOGLOBIN A1c% 6.2 % (4.27-6.07)
== END 2022-02-22 07:25 | disposition home or self-care (01) ==
LOC: LAB.N 07:24
PROVIDERS: ATTEND Internal Medicine
DX: E11.9 Type 2 diabetes mellitus without complications (principal)
CPT/HCPCS: 36415; 80048; 83036

== ENCOUNTER 2022-07-04 08:26 | Outpatient (CLI) | payer OTHER ==
--- NOTE | 2022-07-05 10:52 | Ultrasound Report ---
LIMITED ULTRASOUND OF RIGHT BREAST: 07/04/2022 CLINICAL: Patient returns today to evaluate a focal asymmetry in the right breast. Comparison is made to exams dated: 07/04/2022 mammogram - [facility], 02/21/2022 mercedes mogram - [facility], 05/07/2021 localization, 05/07/2021 mammogram, 05/07/2021 localization, and 05/07/2021 localization - [facility]. Color flow, real-time, and Doppler ultrasound of the right breast 9 o'clock region were performed. G ray scale images of the real-time examination were reviewed. There is an ill-define hypoechoic region inferior to the lumpectomy scar, inseparable from the scarri ng itself. This is non-vascular with mild shadowing. There is a diffusely edematous appearance of the breast background parenchyma along with regional skin thickening. IMPRESSION: INCOMPLETE: NEEDS ADDITIONAL IMAGING EVALUATION Hypoechoic focus inferior to the right breast lumpectomy scar with diffuse findings suggestive of rad iation mastitis. The new hypoechoic region adjacent to the scar could represent additional scarring a nd fibrotic/reactive changes in the setting of background blooming radiation mastitis. However, an in flammatory breast cancer recurrence could cause similar changes. MRI of the breasts recommended to he lp differentiate. This exam was interpreted at Station ID: [id number]. Electronically Signed By: Buster Garcia M.D. jr/:07/04/2022 14:50:25 copy to: Juan M Simmons copy to: PRINCESS WELLS, [facility], ph: [phone], fax: [phone] Ultrasound BI-RADS: 0 Indeterminate BI-RADS CATEGORY: (0) - 0 MRI [id number] Immediate follow-up LATERALITY: (B)
--- NOTE | 2022-07-05 10:52 | Mammography Report ---
BILATERAL DIGITAL DIAGNOSTIC MAMMOGRAM 3D/2D: 07/04/2022 CLINICAL: Rt side medial rash for 3 weeks, personal history of rt breast cancer. Comparison is made to exams dated: 02/21/2022 mammogram - [facility], 05/07/2021 mammogram - [facility], 10/16/2020 mammogram, 10/06/2020 mammogram - [facility], 09/16 mammogram - [facility], and 11/11/2016 mammogram - [facility]. There are scattered areas of fibroglandular density in both breasts (category b / 25%-50% glandular t issue). Diffusely thickened appearance of the fibroglandular markings and the skin in the right breast center ed on the lumpectomy and radiation site. 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 Ultrasound will be performed to exclude and underlying mass. IMPRESSION: INCOMPLETE: NEEDS ADDITIONAL IMAGING EVALUATION Diffusely thickened appearance of the fibroglandular markings and the skin in the right breast center ed on the lumpectomy and radiation site. 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 Ultrasound will be performed to exclude and underlying mass. This exam was interpreted at Station ID: [id number]. NOTE: For mammograms, a report in lay terms will be sent to the patient. Approximately 15% of breast malignancies will not be visualized mammographically. In the management of a palpable breast mass, a negative mammogram must not discourage biopsy of a clinically suspicious lesion. Electronically Signed By: Buster Garcia M.D. jr/:07/04/2022 13:55:17 copy to: Juan M Simmons copy to: PRINCESS WELLS, [facility], ph: [phone], fax: ACR BI-RADS Category 0: Incomplete 3340F PARENCHYMAL PATTERN: (A) - The breast(s) demonstrate(s) scattered fibroglandular densities. BI-RADS CATEGORY: (0) - 0 Ultrasound [id number] Immediate follow-up LATERALITY: (B)
== END 2022-07-04 08:27 | disposition home or self-care (01) ==
LOC: DI 08:26
PROVIDERS: ATTEND Physician Assistant
DX: R21 Rash and other nonspecific skin eruption (principal); C50.911 Malignant neoplasm of unspecified site of right female breast

== ENCOUNTER 2023-03-06 10:53 | Outpatient (CLI) | payer OTHER ==
--- NOTE | 2023-03-07 12:38 | Ultrasound Report ---
LIMITED ULTRASOUND OF RIGHT BREAST: 03/06/2023 CLINICAL: Patient returns today to evaluate a focal asymmetry in the right breast. Comparison is made to exams dated: 03/06/2023 mammogram - [facility], 07/15/2022 east MRI - [facility], 07/04/2022 ultrasound, 07/04/2022 mammogram - [facility], 02/21/2022 mammogram - [facility], and 05/07/2021 mammogram - [facility]. Color flow and real-time ultrasound of the right breast 9 o'clock region were performed. Ramires scale images of the real-time examination were reviewed. There is a 2.4 cm x 1.9 cm x 1.3 cm irregular post-surgical scar in the right breast at 9 o'clock ant erior depth 2 cm from the nipple. This irregular post-surgical scar is of mixed echogenicity. This abnormality is not significantly changed and correlates with mammography and breast MRI findings. IMPRESSION: PROBABLY BENIGN The 2.4 cm x 1.9 cm x 1.3 cm irregular post-surgical scar in the right breast is probably benign. A follow-up mammogram and an ultrasound in 6 months is recommended to demonstrate stability. This exam was interpreted at Station ID: [id number]. Electronically Signed By: Juan M post/ayla:03/06/2023 12:46:06 Ultrasound BI-RADS: 3 Probably benign BI-RADS CATEGORY: (3) - 3 Mammo and [place] [id number] 6 month follow-up LATERALITY: (B)
--- NOTE | 2023-03-07 12:38 | Mammography Report ---
UNILATERAL RIGHT DIGITAL DIAGNOSTIC MAMMOGRAM 3D/2D: 03/06/2023 CLINICAL: Personal history of right breast cancer. Short term follow up of the right breast. Comparison is made to exams dated: 07/15/2022 breast MRI - [facility] [place], 07/04/2022 mammog jacky - [facility], 02/21/2022 [place]ogram - [facility] [place], 07/04/2022 ultrasoun d, and 05/07/2021 mammogram - [facility]. There are scattered areas of fibroglandular density in the right breast (category b / 25%-50% glandul ar tissue). Postsurgical and postradiation changes in the right breast have mildly decreased, with stable scarrin g and decreased skin and trabecular thickening. No significant masses, calcifications, or other findings are seen in the breast. IMPRESSION: INCOMPLETE: NEEDS ADDITIONAL IMAGING EVALUATION Targeted ultrasound is recommended for follow up of prior sonographic findings and will be performed immediately following this exam. This exam was interpreted at Station ID: [id number]. NOTE: For mammograms, a report in lay terms will be sent to the patient. Approximately 15% of breast malignancies will not be visualized mammographically. In the management of a palpable breast mass, a negative mammogram must not discourage biopsy of a clinically suspicious lesion. Electronically Signed By: Juan M post/ayla:03/06/2023 12:43:24 ACR BI-RADS Category 0: Incomplete 3340F PARENCHYMAL PATTERN: (A) - The breast(s) demonstrate(s) scattered fibroglandular densities. BI-RADS CATEGORY: (0) - 0 Ultrasound [id number] Immediate follow-up LATERALITY: (R)
== END 2023-03-06 10:54 | disposition home or self-care (01) ==
LOC: DI 10:53
PROVIDERS: ATTEND Internal Medicine
DX: C50.911 Malignant neoplasm of unspecified site of right female breast (principal); R92.8 Other abnormal and inconclusive findings on diagnostic imaging of breast; Z80.3 Family history of malignant neoplasm of breast

== ENCOUNTER 2023-05-07 07:15 | Outpatient (CLI) | payer OTHER ==
[2023-05-07 07:43] LABS: ALBUMIN 4.3 g/dL (3.2-5.5); ALBUMIN/GLOBULIN RATIO 1.4 (1.0-2.2); ALKALINE PHOSPHATASE 87 IU/L (42-121); ALT ALANINE AMINOTRANSFERASE 38 IU/L (10-60); AST ASPARTATE AMINOTRANSFERASE 30 IU/L (10-42); BILIRUBIN,TOTAL 0.6 mg/dL (0.2-1.0); BUN - BLOOD UREA NITROGEN 11 mg/dL (6-20); CALCIUM 10.1 mg/dL (8.5-10.3); CARBON DIOXIDE - CO2 26 mmol/L (21-32); CHLORIDE 104 mmol/L (101-111); CHOL/HDL RATIO 2.8 (<4.4); CHOLESTEROL 141 mg/dL; CREATININE 0.6 mg/dL (0.6-1.3); GFR - MDRD 101 (>89); GLUCOSE 179 mg/dL (74-104); HDL CHOLESTEROL 50 mg/dL; LDL CHOLESTEROL,CALCULATED 71 mg/dL; LDL/HDL RATIO 1.4 (<4.4); POTASSIUM 3.7 mmol/L (3.5-4.5); SODIUM 137 mmol/L (135-145); TOTAL PROTEIN 7.4 g/dL (6.4-8.9); TRIGLYCERIDES 102 mg/dL (48-352); VLDL CHOLESTEROL 20 mg/dL
[2023-05-07 07:44] LABS: MICROALBUM/CREATININE RATIO,UR 39.1 ug/mg (<30.0); MICROALBUMIN,URINE 6.6 mg/dL
[2023-05-07 07:50] LABS: BASOPHILS # (AUTO) 0.1 10^3/uL (0.0-0.1); BASOPHILS % (AUTO) 1.1 %; EOSINOPHILS # (AUTO) 0.3 10^3/uL (0.0-0.7); EOSINOPHILS % (AUTO) 4.1 %; HCT - HEMATOCRIT 47.2 % (37.0-47.0); HGB - HEMOGLOBIN 15.8 g/dL (12.0-16.0); LYMPHOCYTES # (AUTO) 1.8 10^3/uL (1.5-3.5); MEAN CORPUSCULAR HEMOGLOBIN 29.9 pg (27.0-31.0); MEAN CORPUSCULAR HGB CONC 33.5 g/dL (32.0-36.0); MEAN CORPUSCULAR VOLUME 89.4 fL (81.0-99.0); MEAN PLATELET VOLUME 9.6 fL (7.9-10.8); MONOCYTES # (AUTO) 0.6 10^3/uL (0.0-1.0); NEUTROPHILS # (AUTO) 4.8 10^3/uL (1.5-6.6); NEUTROPHILS % (AUTO) 63.7 %; PLT - PLATELET COUNT 312 10^3/uL (130-450); RED BLOOD COUNT 5.28 10^6/uL (4.20-5.40); RED CELL DISTRIBUTION WIDTH 12.3 % (12.0-15.0); WHITE BLOOD COUNT 7.6 x10^3/uL (4.8-10.8)
[2023-05-07 11:20] LABS: ESTIMATED AVERAGE GLUCOSE 166 mg/dL (70-100); HEMOGLOBIN A1c% 7.4 % (4.27-6.07)
== END 2023-05-07 07:16 | disposition home or self-care (01) ==
LOC: LAB 07:15
PROVIDERS: ATTEND Internal Medicine
DX: C50.911 Malignant neoplasm of unspecified site of right female breast (principal); Z17.0 Estrogen receptor positive status [ER+]; E11.9 Type 2 diabetes mellitus without complications
CPT/HCPCS: 36415; 80053; 80061; 82043; 82570; 83036; 83721; 85025

== ENCOUNTER 2023-07-30 08:23 | Day surgery (SDC) | payer OTHER ==
[2023-07-30] MEDS ORDERED: LACTATED RINGERS 1,000 ML IV ONE ×2 (08:51→11:05)
--- NOTE | 2023-07-30 09:44 | ANESTHESIA ---
Pre-Anesthesia VS, & Labs - Diagnosis hx of polyps - Procedure colonoscopy Vital Signs: Temp Pulse Resp BP Pulse Ox O2 Flow Rate 36.1 C L 87 16 148/107 H 98 07/30/23 08:37 07/30/23 08:37 07/30/23 08:37 07/30/23 08:37 07/30/23 08:37 Height: 5 ft 1 in Weight (kg): 87 kg Body Mass Index: 36.2 BMI Classification: Obese - NPO >8 hours - Is Patient ?: No - Lab Results Current Lab Results: Laboratory Tests 07/30/23 08:52: POC Whole Bld Glucose 184 H Home Medications and Allergies Home Medications: Ambulatory Orders Gabapentin [Neurontin] 600 mg PO HS 07/30/23 Losartan [Cozaar] 50 mg PO DAILY 07/30/23 Potassium Chloride [Klor-Con M10] 20 meq ORAL DAILY 08/04/15 metFORMIN [Glucophage] 2,000 mg ORAL DAILY 08/04/15 Glimepiride 2 mg PO DAILY 11/13/18 Cholecalciferol [Vitamin D3] 4,000 unit PO DAILY 12/28/18 Ascorbic Acid [Vitamin C] 500 mg PO DAILY 11/07/20 Gabapentin [Neurontin] 600 mg PO HS 07/30/23 Losartan [Cozaar] 50 mg PO DAILY 07/30/23 Allergies/Adverse Reactions: Allergies Allergy/AdvReac Type Severity Reaction Status Date / Time morphine AdvReac chest pain Verified 02/27/22 11:54 and nausea Anes History & Medical History - Anesthetic History Anesthesia Complications: reports: No previous complications Family history of Anesthesia Complications: Denies Family history of Malignant Hyperthermia: Denies - Medical History Cardiovascular: reports: Hypertension Pulmonary: reports: None, Pneumonia Gastrointestinal: reports: Colon polyps Urinary: reports: None Musculoskeletal: reports: Chronic back pain Endocrine/Autoimmune: reports: Type 2 diabetes Skin: reports: None Smoking Status: Never smoker - Surgical History General: reports: Colonoscopy, Other Gynecologic: reports: Hysterectomy Exam General: Alert, Oriented x3, Cooperative Dental: WNL Mouth Openin Fingerbreadth Neck Mobility: Normal Mallampati classification: II Thyromental Distance: 4-6 cm Respiratory: Lungs clear Cardiovascular: Regular rate Plan Anesthesia Type: General, Total IV Consent for Procedure(s) Verified and Reviewed: Yes Code Status: Attempt Resuscitation ASA classification: 2-Mild systemic disease Is this case an emergency?: No
[2023-07-30] MEDS ORDERED: PROPOFOL 500 MG/50 ML 500 MG/50 ML VIAL ONE (10:41)
[2023-07-30 11:18] VITALS: O2SAT 97
[2023-07-30 11:54] VITALS: BP 132/82
--- NOTE | 2023-07-30 16:54 | ANESTHESIA POST OP EVALUATION ---
Anesthesia Post Eval - Post Anesthesia Eval Vitals: Last Vital Signs Temp 36.2 C L 07/30/23 11:35 Pulse 80 07/30/23 11:35 Resp 16 07/30/23 11:35 BP 132/82 H 07/30/23 11:35 Pulse Ox 97 07/30/23 11:35 O2 Flow Rate CV Function Including HR & BP: Stable Pain Control: Satisfactory Nausea & Vomiting: Negative Mental Status: Baseline Respiratory Status: Airway Patent Hydration Status: Satisfactory Anesthesia Complications: None
== END 2023-07-30 08:24 | disposition home or self-care (01) ==
LOC: SDS 08:23
PROVIDERS: ATTEND Surgery
PROC: 0DBL8ZZ Excision of Transverse Colon, Via Natural or Artificial Opening Endoscopic (ICD-10-PCS; 2023-07-30)
PROC: 0DBN8ZZ Excision of Sigmoid Colon, Via Natural or Artificial Opening Endoscopic (ICD-10-PCS; 2023-07-30)
PROC: 0DBP8ZZ Excision of Rectum, Via Natural or Artificial Opening Endoscopic (ICD-10-PCS; principal; 2023-07-30 09:30)
DX: Z12.11 Encounter for screening for malignant neoplasm of colon (principal); D12.3 Benign neoplasm of transverse colon; K62.1 Rectal polyp; K63.5 Polyp of colon; K57.30 Diverticulosis of large intestine without perforation or abscess without bleeding; E66.9 Obesity, unspecified; Z68.36 Body mass index [BMI] 36.0-36.9, adult; E11.9 Type 2 diabetes mellitus without complications; Z79.84 Long term (current) use of oral hypoglycemic drugs
CPT/HCPCS: 45380; J7120

== ENCOUNTER 2023-10-08 08:22 | Outpatient (CLI) | payer OTHER ==
--- NOTE | 2023-10-08 11:53 | Mammography Report ---
BILATERAL DIGITAL DIAGNOSTIC MAMMOGRAM 3D/2D: 10/08/2023 CLINICAL: Patient returns for a 6 month follow up of the right breast, due for bilateral exam. Comparison is made to exams dated: 03/06/2023 mammogram, 07/04/2022 mammogram - [facility], 02/21/2022 mammogram - [facility], 05/07/2021 mammogram, 07/04/2022 ultrasound, and 03/06/2023 ultrasound - [facility]. There are scattered areas of fibroglandular density in both breasts (category b / 25%-50% glandular t issue). Post operative changes in the right breast are less prominent. Stable skin thickening. No suspicious calcifications. No significant masses, calcifications, or other findings are seen in either breast. IMPRESSION: INCOMPLETE: NEEDS ADDITIONAL IMAGING EVALUATION Post operative changes in the right breast are less prominent. A targeted ultrasound is recommended and will immediately follow. This exam was interpreted at Station ID: [id number]. NOTE: For mammograms, a report in lay terms will be sent to the patient. Approximately 15% of breast malignancies will not be visualized mammographically. In the management of a palpable breast mass, a negative mammogram must not discourage biopsy of a clinically suspicious lesion. Electronically Signed By: Benjie Cardenas M.D. slc/:10/08/2023 09:32:31 ACR BI-RADS Category 0: Incomplete 3340F PARENCHYMAL PATTERN: (A) - The breast(s) demonstrate(s) scattered fibroglandular densities. BI-RADS CATEGORY: (0) - 0 Ultrasound [id number] Immediate follow-up LATERALITY: (B)
--- NOTE | 2023-10-08 11:53 | Ultrasound Report ---
LIMITED ULTRASOUND OF RIGHT BREAST: 10/08/2023 CLINICAL: Patient returns today to evaluate a focal asymmetry in the right breast. Comparison is made to exams dated: 10/08/2023 mammogram, 03/06/2023 ultrasound, 03/06/2023 mammogram, 1 mammogram, and 07/04/2022 ultrasound - [facility]. Color flow and real-time ultrasound of the right breast 9 o'clock region were performed. Ramires scale images of the real-time examination were reviewed. There is a 1.8 cm x 1.4 cm x 1.1 cm oval post-surgical scar in the right breast at 9 o'clock anterior depth 1 cm from the nipple. This oval post-surgical scar is heterogeneously echogenic. This abnorm ality is decreased in size and correlates with mammography findings. Color flow imaging demonstrates that there is no vascularity present. IMPRESSION: PROBABLY BENIGN The 1.8 cm oval post-surgical scar in the right breast is decreased in size and is probably benign. A follow-up mammogram and possible ultrasound in 12 months is recommended long-term stability. Exam findings were conveyed to the patient. This exam was interpreted at Station ID: [id number]. Electronically Signed By: Benjie Cardenas M.D. slc/:10/08/2023 09:40:38 Ultrasound BI-RADS: 3 Probably benign BI-RADS CATEGORY: (3) - 3 Mammo and US [id number] 12 month follow-up LATERALITY: (B)
== END 2023-10-08 08:23 | disposition home or self-care (01) ==
LOC: DI 08:22
PROVIDERS: ATTEND Internal Medicine
DX: R92.2 Inconclusive mammogram (principal); R92.323 Mammographic fibroglandular density, bilateral breasts

== ENCOUNTER 2023-10-23 07:18 | Outpatient (CLI) | payer OTHER ==
[2023-10-23 07:48] LABS: CREATININE 0.7 mg/dL (0.6-1.3); POTASSIUM 3.9 mmol/L (3.5-4.5)
[2023-10-23 11:57] LABS: ESTIMATED AVERAGE GLUCOSE 171 mg/dL (70-100); HEMOGLOBIN A1c% 7.6 % (4.27-6.07)
== END 2023-10-23 07:19 | disposition home or self-care (01) ==
LOC: LAB 07:18
PROVIDERS: ATTEND Internal Medicine
DX: E11.9 Type 2 diabetes mellitus without complications (principal); E55.9 Vitamin D deficiency, unspecified
CPT/HCPCS: 36415; 80048; 82306; 83036

== ENCOUNTER 2023-11-20 14:15 | Emergency (ER) | payer OTHER ==
[2023-11-20 15:16] LABS: BASOPHILS # (AUTO) 0.1 10^3/uL (0.0-0.1); BASOPHILS % (AUTO) 0.6 %; EOSINOPHILS # (AUTO) 0.5 10^3/uL (0.0-0.7); EOSINOPHILS % (AUTO) 4.6 %; HCT - HEMATOCRIT 47.6 % (37.0-47.0); HGB - HEMOGLOBIN 15.8 g/dL (12.0-16.0); LYMPHOCYTES # (AUTO) 1.8 10^3/uL (1.5-3.5); LYMPHOCYTES % (AUTO) 18.4 %; MEAN CORPUSCULAR HEMOGLOBIN 29.5 pg (27.0-31.0); MEAN CORPUSCULAR HGB CONC 33.2 g/dL (32.0-36.0); MEAN PLATELET VOLUME 9.4 fL (7.9-10.8); MONOCYTES # (AUTO) 0.7 10^3/uL (0.0-1.0); NEUTROPHILS # (AUTO) 6.8 10^3/uL (1.5-6.6); NEUTROPHILS % (AUTO) 69.1 %; PLT - PLATELET COUNT 340 10^3/uL (130-450); RED BLOOD COUNT 5.35 10^6/uL (4.20-5.40); RED CELL DISTRIBUTION WIDTH 12.2 % (12.0-15.0); WHITE BLOOD COUNT 9.8 x10^3/uL (4.8-10.8)
[2023-11-20 15:32] LABS: ALBUMIN 4.5 g/dL (3.2-5.5); ALBUMIN/GLOBULIN RATIO 1.4 (1.0-2.2); BILIRUBIN,TOTAL 0.9 mg/dL (0.2-1.0); CALCIUM 10.2 mg/dL (8.5-10.3); CREATININE 0.6 mg/dL (0.6-1.3); POTASSIUM 4.1 mmol/L (3.5-4.5); TOTAL PROTEIN 7.7 g/dL (6.4-8.9)
[2023-11-20 15:47] LABS: BILIRUBIN,URINE NEGATIVE (NEGATIVE); GLUCOSE, URINE (UA) NEGATIVE (NEGATIVE); KETONES,URINE (UA) NEGATIVE (NEGATIVE); LEUKOCYTE ESTERASE, URINE NEGATIVE (NEGATIVE); NITRITE,URINE POSITIVE (NEGATIVE); OCCULT BLOOD,URINE LARGE (NEGATIVE); PROTEIN,URINE NEGATIVE (NEGATIVE); UROBILINOGEN,URINE 1 (NORMAL) E.U./dL (NORMAL)
[2023-11-20 15:48] LABS: CLARITY,URINE HAZY (CLEAR)
[2023-11-20 15:57] LABS: BACTERIA,URINE Moderate /HPF (None Seen); RBC,URINE TNTC /HPF (0-5); SQUAMOUS EPITHELIAL CELL,UR FEW Squamous (<= Few)
[2023-11-20 16:15] VITALS: O2SAT 97
--- NOTE | 2023-11-20 17:08 | ED Physician Documentation ---
History of Present Illness - Stated complaint Stated Complaint: LOWER BACK/ABD PX,NAUSEA,SHAKEY - Chief complaint Chief Complaint: Abd Pain - History obtained from History obtained from: Patient, Family - Additonal information Additional information: The patient comes to the emergency department chief complaint of left flank pain that started this morning. The patient states it slowly escalated until it was practically unbearable driving home. She states that the pain was a 10 out of 10 at maximum and persisted throughout her weight in the lobby to be seen here, but now, his spontaneously decreased to about a 5. She denies any migration of the pain, but states at its worst, it did radiate into her left lower quadrant. No dysuria. No hematuria. No fevers or chills. She got a little bit nauseated when the pain was at its worst. No history of kidney stones. She has a history of back spasms previously but states this feels different and she did not have any triggering event. No radiation of pain down her leg. No numbness or tingling. No loss of bowel or bladder control. She does not feel sick in any other way. No other complaints at this time. PD PAST MEDICAL HISTORY - Past Medical History Cardiovascular: Hypertension Respiratory: None, Pneumonia Endocrine/Autoimmune: Type 2 diabetes GI: Colon polyps : None HEENT: Chronic vision loss Psych: None Musculoskeletal: Chronic back pain Derm: None - Past Surgical History Past Surgical History: Yes General: Colonoscopy, Other /[employer]: Hysterectomy - Present Medications Home Medications: Ambulatory Orders Medication Instructions Recorded Confirmed Potassium Chloride [Klor-Con M10] 20 meq ORAL DAILY 08/04/15 11/20/23 metFORMIN [Glucophage] 2,000 mg ORAL DAILY 08/04/15 11/20/23 Glimepiride 2 mg PO DAILY 11/13/18 11/20/23 Cholecalciferol [Vitamin D3] 4,000 unit PO DAILY 12/28/18 11/20/23 Ascorbic Acid [Vitamin C] 500 mg PO DAILY 11/07/20 11/20/23 Letrozole 2.5 mg PO DAILY #90 tablet 06/04/23 11/20/23 Losartan [Cozaar] 50 mg PO DAILY 07/30/23 11/20/23 Gabapentin [Neurontin] 200 mg PO HS 11/20/23 11/20/23 HYDROcod/ACETAM 5/325 [[place] 5/325] 1 - 2 tablet PO Q6H PRN #14 tablet 11/20/23 Ondansetron Odt [Zofran] 4 mg TL Q6H PRN #10 tablet 11/20/23 levoFLOXacin [Levaquin] 500 mg PO QD #6 tablet 11/20/23 - Allergies Allergies/Adverse Reactions: Allergies Allergy/AdvReac Type Severity Reaction Status Date / Time morphine AdvReac chest pain Verified 11/20/23 14:40 and nausea - Social History Does the pt smoke?: No Smoking Status: Never smoker Does the pt drink ETOH?: No Does the pt have substance abuse?: No - Immunizations Immunizations are current?: Yes - POLST Patient has POLST: No PD ED PE NORMAL - Vitals Vital signs reviewed: Yes - General General: Alert and oriented X 3, No acute distress, Well developed/nourished - HEENT HEENT: Atraumatic, PERRL, EOMI, Moist mucous membranes - Neck Neck: Supple, no meningeal sign - Cardiac Cardiac: RRR, No murmur - Respiratory Respiratory: No respiratory distress, Clear bilaterally - Abdomen Abdomen: Soft, Non tender, Non distended - Back Back: No CVA TTP - Derm Derm: Normal color, Warm and dry, No rash - Extremities Extremities: No deformity, No edema - Neuro Neuro: Alert and oriented X 3, commercial correspondent 2-12 intact, Normal speech, Other (Grossly intact) - Psych Psych: Normal mood, Normal affect Results - Vitals Vitals: Oxygen O2 Source Room air - Labs Labs: Microbiology 11/20/23 15:06 Urine Culture - Final Urine,Random Escherichia Coli Laboratory Tests 11/20/23 11/20/23 11/20/23 15:06 15:10 15:10 WBC 9.8 RBC 5.35 Hgb 15.8 Hct 47.6 H MCV 89.0 MCH 29.5 MCHC 33.2 RDW 12.2 Plt Count 340 MPV 9.4 Neut # (Auto) 6.8 H Lymph # (Auto) 1.8 [place] # (Auto) 0.7 Eos # (Auto) 0.5 Baso # (Auto) 0.1 Absolute Nucleated RBC 0.00 Nucleated RBC % 0.0 Sodium 137 Potassium 4.1 Chloride 106 Carbon Dioxide 22 Anion Gap 9.0 BUN 16 Creatinine 0.6 Estimated GFR (MDRD) 101 Glucose 162 H Calcium 10.2 Total Bilirubin 0.9 AST 38 ALT 49 Alkaline Phosphatase 79 Total Protein 7.7 Albumin 4.5 Globulin 3.2 Albumin/Globulin Ratio 1.4 Lipase 36 Urine Color YELLOW Urine Clarity HAZY Urine pH 6.0 Ur Specific [place] 1.025 Urine Protein NEGATIVE Urine Glucose (UA) NEGATIVE Urine Ketones NEGATIVE Urine Occult Blood LARGE H Urine Nitrite POSITIVE H Urine Bilirubin NEGATIVE Urine Urobilinogen 1 (NORMAL) Ur Leukocyte Esterase NEGATIVE Urine RBC TNTC H Urine WBC 4-5 Ur Squamous Epith Cells FEW Squamous Urine Bacteria Moderate H Ur Microscopic Review INDICATED Urine Culture Comments INDICATED - Rads (name of study) CT abdomen and pelvis without contrast Relevant Findings:: Final report received, See rad report (1 to 2 mm left UVJ stone.) PD Medical Decision Making - ED course Complexity details: reviewed results, re-evaluated patient, considered differential, d/w patient, d/w family ED course: The patient was worked up with urinalysis, labs, and ultimately, CT scan of the abdomen and pelvis. The patient's labs are unremarkable but she was found to have a tiny stone at the UVJ on her CT, corresponding with the patient's pain. I discussed the case with Dr. Hairston of urology, as the patient did have mild findings potentially indicating infection on her urinalysis, and did have a tiny stone albeit expected to pass very soon. Dr. Hairston felt that the patient was stable to be discharged with antibiotics. She was given first dose of Levaquin here in the emergency department and discharged with a prescription for the same. We have discussed the need for hydration and antibiotics. We discussed the need for immediate return, should the patient develop fevers or feel that she is becoming significantly more ill. Departure - Departure Disposition: 01 Home, Self Care Clinical Impression: Kidney stone on left side UTI (urinary tract infection) Qualifiers: Urinary tract infection type: acute cystitis Hematuria presence: with hematuria Qualified Code(s): N30.01 - Acute cystitis with hematuria Condition: Stable Instructions: ED UTI Cystitis Female, ED Stone Renal W Colic Prescriptions: levoFLOXacin [Levaquin] 500 mg PO QD #6 tablet HYDROcod/ACETAM 5/325 [[place] 5/325] 1 - 2 tablet PO Q6H PRN #14 tablet PRN Reason: Pain Ondansetron Odt [Zofran] 4 mg TL Q6H PRN #10 tablet PRN Reason: Nausea / Vomiting Comments: Your CT scan shows a very tiny stone that is just about to pop into your bladder on the left. You have a mild urinary tract infection which will most likely resolve quickly once the stone passes. However, we have started you on antibiotics as a precaution to make sure this does not get worse. I discussed your case with the urologist who feels you are stable for discharge home. A prescription for your medications has been electronically transmitted to the [facility] pharmacy in [place]. Please pick them up tonight. Forms: PCP List Discharge Date/Time: 11/20/23 18:55
--- NOTE | 2023-11-20 17:39 | CT Report ---
PROCEDURE: Abdomen/Pelvis WO INDICATIONS: L flank pain TECHNIQUE: A CT scan of the abdomen and pelvis was performed without the use of intravenous contrast. Images we re recorded and evaluated at appropriate window settings. Reformats: coronal and sagittal. For radiat ion dose reduction, the following was used: automated exposure control, adjustment of mA and/or kV ac cording to patient size. COMPARISON: Diagnostic FINDINGS: Image quality: Diagnostic Lower chest: Scattered scarring and atelectasis at the lung bases. Mild peribronchial wall thickening , possibly bronchitis. Possible small hiatal hernia. Suspected valve calcifications. There is skin th ickening of the right breast, correlate with clinical exam. These are only partially seen. Solid organs are not well evaluated in the absence of intravenous contrast Liver: Possible steatosis, mild. 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 Kidneys: There is a 1 to 2 mm left UVJ stone with mild upstream hydroureteronephrosis. No contour def orming mass. Vessels and lymph nodes: No abdominal aortic aneurysm or pathologic lymph nodes by size criteria. Bowel and peritoneum: No evidence of small bowel obstruction. Nonspecific mesenteric mild fat strandi ng is seen. 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 Colonic diverticula are present. The appendix is nondilated. Body wall: Tiny fat-containing umbilical hernia. Pelvis: Bladder is underdistended, not well evaluated. Hyperdensity is seen at the right vaginal cuff , of uncertain significance, correlate with clinical exam and any symptoms if indicated. There are po stsurgical changes and suspected phleboliths. Bones: Degenerative changes, no acute or suspicious findings. IMPRESSION: Mild left hydroureteronephrosis secondary to a 1 to 2 mm obstructing left UVJ stone. Multiple other incidental findings as above on this non-. Reviewed by: Tony Bejarano MD on 11/20/2023 5:38 PM PST Approved by: Tony Bejarano MD on 11/20/2023 5:38 PM PST Station ID: [id number]
[2023-11-20] MEDS: levoFLOXacin 250 MG TABLET PO STA (18:08)
[2023-11-20 18:10] VITALS: BP 153/96
== END 2023-11-20 18:55 | disposition home or self-care (01) ==
LOC: ED 14:15
DX: N30.01 Acute cystitis with hematuria (principal); N20.0 Calculus of kidney; I10 Essential (primary) hypertension; E11.9 Type 2 diabetes mellitus without complications; Z79.84 Long term (current) use of oral hypoglycemic drugs
CPT/HCPCS: 36415; 74176; 80053; 81001; 83690; 85025; 87086; 87181; 99284; A9270; 81003